=== PATIENT | female | born 1955 ===

== ENCOUNTER 2025-04-23 13:10 | Outpatient (AMB) | payer MEDICARE, SELFPAY ==
--- NOTE | 2025-04-23 13:15 | A.OFFVIS_ITS ---
Vital Signs 04/23/25 13:28 BP 143/61 H Position Sitting Intake Visit Reasons: F/u Allergies Penicillins Allergy (Unknown, Verified 04/23/25 13:20) Unknown Medication List - Last Reconciled 04/23/25 by Saritha Chang CNP alprazolam 0.75 mg PO BEDTIME fuuksjqbbz-gknyurkvnpvbw-xyba 50-325-40 mg 1 tab PO DAILY PRN verapamil ER 120 mg PO DAILY HPI Comments Details: 70-year-old [place] woman with chronic stress, anxiety, and migraine headaches. She was previously treated by Dr. Rankin with Fioricet, which was prescribed for headaches, and Xanax for anxiety. Headaches started after her son was born and anxiety after her father around 2013. Headaches were better with verapamil. No medication side effects. Headaches were down to about 1x/week from every other day since starting medication. Pain was sometimes on the left side, sometimes on the right side, pressure-type, mderate to severe, worse with light and noise, and could last few days. Fioricet as needed helped. No triggers identified. Tremors were mild. No functional impairment. No difficulty eating, drinking, or swallowing. Mood was okay, anxiety stable. Sleep was okay. PENDING SALE TO [facility] Medical History (Updated 04/23/25 @ 13:19 by Saritha Chang CNP) Benign essential tremor Insomnia Anxiety disorder Chronic tension type headache Review of Systems Const Denies chills, Denies daytime sleepiness, Denies difficulty sleeping, Denies fatigue, Denies fever(s), Denies frequent falls, Reports headache(s), Denies increased appetite, Denies poor appetite, Denies snoring, Denies weakness, Denies weight gain and Denies weight loss Eyes Denies loss of vision ENT Denies vertigo, Denies dizziness and Reports headache(s) Card Denies chest pain at rest, Denies chest pain with activity, Denies syncope, Denies leg edema and Denies palpitations Resp Denies snoring GI Denies constipation, Denies heartburn, Denies diarrhea and Denies nausea Denies urinary frequency, Denies urinary incontinence and Denies urinary urgency Musc Denies abnormal gait, Denies numbness and Denies tingling Skin/Breast Denies dry skin and Denies rash Neuro Denies abnormal gait, Denies vertigo, Denies dizziness, Denies syncope, Denies frequent falls, Reports headache(s), Denies lack of coordination, Denies loss of vision, Denies memory loss, Denies numbness, Denies restless legs, Denies seizure-like activity, Denies tingling, Denies paresthesias, Denies tremor(s) and Denies weakness Psych Denies anxiety, Denies depression, Denies auditory hallucinations, Denies memory loss, Denies visual hallucinations and Denies suicidal ideation Endo Denies fatigue and Denies palpitations Physical Exam Const Other: General Appearance:? normal, in no acute distress. Skin:? no rashes, no significant birthmarks. Heart:? S1, S2 normal, no murmurs. Lungs:? clear anteriorly and posteriorly. Extremities:? no edema. Psych:? alert, oriented, cognitive function intact, cooperative with exam. Neuro Other: Mental Status:?Normal attention, orientation, memory and affect.? Cranial Nerves:?Pupils are equal, round and reactive to light. External occular muscles are intact. Visual flowers are full. Face is symmetrical. Facial sensations are normal. Tongue is midline. Palate elevates symmetrically. Shoulder shrugging is normal. Hearing to bedside conversation is normal. Coordination:?No ataxia,?no titubation.? Gait Exam: Within normal limits. Cerebellar Signs:?Wexxwq-ke-gxmg is okay. Extrapyramidal System:?No tremor, rigidity with normal facial expressions.? Pronator Drift:?Not present.? Involuntary Movements:?Mild hand and speech tremor. Speech:?Mild speech tremor. Assessment & Plan Assessment & Plan (1) Chronic tension type headache: Code(s): G44.229 - Chronic tension-type headache, not intractable Category: Medical Qualifiers: Intractability: not intractable Qualified Code(s): G44.229 - Chronic tension-type headache, not intractable Plan: Continue verapamil HCL ER 120mg 1 tablet daily. Continue ryqhqvzsqa-NLCC-elon 50-325-40mg 1 tablet as needed once a day for headache #12 for 30 days. (2) Anxiety disorder: Code(s): F41.9 - Anxiety disorder, unspecified Category: Medical Qualifiers: Anxiety disorder type: unspecified anxiety disorder Qualified Code(s): F41.9 - Anxiety disorder, unspecified Plan: Continue alprazolam 0.25mg 3 tablets at bedtime. (3) Insomnia: Code(s): G47.00 - Insomnia, unspecified Category: Medical Qualifiers: Insomnia type: unspecified Qualified Code(s): G47.00 - Insomnia, unspecified Plan: Alprazolam may also help with sleep. (4) Benign essential tremor: Code(s): G25.0 - Essential tremor Category: Medical Plan: Tremor was very mild and there was no functional impairment. No medication was needed at this time, although alprazolam may help with tremor some. Medications: New alprazolam 0.75 mg (3 x 0.25 mg) PO BEDTIME 270 tabs 1RF 90 days verapamil ER 120 mg PO DAILY 90 tabs 1RF 90 days Discontinued verapamil ER Discontinued Reason: Order 120 mg PO DAILY Coding Level of Care Code Est Pt Level 4 (87922) Diagnoses Chronic tension-type headache, not intractable G44.229 Intractability: not intractable Anxiety disorder, unspecified type F41.9 Anxiety disorder type: unspecified anxiety disorder Insomnia, unspecified type G47.00 Insomnia type: unspecified Benign essential tremor G25.0
[2025-04-23 13:28] VITALS: BP 143/61
--- OUTSIDE RECORDS SUMMARY | 2025-04-23 13:46 | XMS_ITS | Clinical Summary ---
Author Organization [facility] [place] [address] Care Team Providers Care Bench Worker [place] Handle Name Role Phone Unavailable Primary Care Provider Unavailabl e Social History Tobacco Use Types Packs/Day Years Used Date Smoking Tobacco: Never Assessed Comments Unknown Sex and Gender Information Value Date Recorded Sex Assigned at Not on file Legal Sex Female 5:08 PM EDT Gender Identity Not on file Sexual Orientation Not on file Plan of Treatment Health Maintenance Due Date Last Done Comments Breast Cancer Screening 1955 DTaP,Tdap,and Td Vaccines (1 - Tdap) 1973 Pneumococcal Vaccine: 50+ Ye ars (1 of 1 - PCV) 02/02/2004 Zoster Vaccines (1 of 2) 02/02/2004 COVID-19 Vaccine ( - 2023-2 5 season) 2024 Colorectal Cancer Screening: Colonoscopy 07/14/2024 Falls Risk Assessment 07/14/2024 Hepatitis C Screening 07/14/2024 Osteoporosis Screening (Bone Density Screening) 07/14/2024 Social Influencers of Health Screening 07/14/2024 Depression Screening 09/18/2024 Influenza Vaccine (#1) 2025 RSV Immunization Adult Patie nts (1 - 1-dose 75+ series) 2029 HIB Vaccines Aged Out No longer eligi ble based on patient's age to complete this topic HPV Vaccines Aged Out No longer eligi ble based on patient's age to complete this topic Hepatitis A Vaccines Aged Out No long er eligible based on patient's age to complete this topic Hepatitis B Vaccines Aged Out No long er eligible based on patient's age to complete this topic IPV Vaccines Aged Out No longer eligi ble based on patient's age to complete this topic MMR Vaccines Aged Out No longer eligi ble based on patient's age to complete this topic Meningococcal ACWY Vaccine Aged Out N o longer eligible based on patient's age to complete this topic Meningococcal B Vaccine Aged Out No l onger eligible based on patient's age to complete this topic RSV Immunization Patients Un candis 20 months Aged Out No longer eligible b ased on patient's age to complete this topic Varicella Vaccines Aged Out No longer eligible based on patient's age to complete this topic
== END 2025-04-23 14:49 | disposition home or self-care (01) ==
LOC: HO.HSM 13:11
PROVIDERS: PCP Internal Medicine; Visit Provider Registered Nurse
DX: G44.229 Chronic tension-type headache, not intractable (principal); F41.9 Anxiety disorder, unspecified; G47.00 Insomnia, unspecified; G25.0 Essential tremor
CPT/HCPCS: 99214

== ENCOUNTER → 2025-04-23 13:10 | Outpatient (BNVA) | payer MEDICARE, SELFPAY | PROVIDERS: Visit Provider Registered Nurse | DX: G44.229 Chronic tension-type headache, not intractable (principal); F41.9 Anxiety disorder, unspecified; G47.00 Insomnia, unspecified; G25.0 Essential tremor | CPT/HCPCS: 99212 ==